=== PATIENT | female | born 1940 | race Caucasian/White ===

== ENCOUNTER 2020-01-23 05:45 | Observation (INO) | payer OTHER ==
[~2020-01-23] VITALS: Ht 167.6 cm; Wt 56.7 kg
[~2020-01-23 05:45] MED LIST: ASPIR 8181 MG PO; CO-ENZYME Q-1010 MG PO; LEVEMIR SUBLING; LEVEMIR SUBQ; MAGOX 400400 MG PO; MEDROL2 MG PO; METFORMIN HCL500 MG PO; MULTAQ 400 MG400 MG PO; NITROGLYCERIN0.4 MG SUBLING; OMEPRAZOLE40 MG PO; PREDNISONE 1 MG1 M1 PO; STARLIX60 MG; STARLIX60 MG PO; TOPROL XL25 MG PO; VITAMIN B-12500 MCG PO; XARELTO10 MG PO
[2020-01-23 06:50] LABS: ABSOLUTE NEUTROPHILS 4.3 thou/uL (1.4-8.2); BASOPHILS 0.6 % (0.0-2.0); EOSINOPHILS 2.4 % (0.0-3.0); HEMATOCRIT 34.8 % (37.0-47.0); HEMOGLOBIN 11.3 gm/dL (12.0-15.0); LYMPHOCYTES 31.9 % (24.0-44.0); MCHC 32.4 g/dL (28.0-37.0); MCV 86.2 fL (80.0-100.0); MONOCYTES 9.6 % (1.0-8.0); PLATELET COUNT 305 thou/uL (150-400); POLYS 55.5 % (36.0-66.0); RBC 4.04 mil/uL (4.20-5.00); RDW 13.1 % (10.5-14.5); WBC 7.7 thou/uL (4.0-11.0)
[2020-01-23 06:56] VITALS: BP 151/69
[2020-01-23 07:01] LABS: ANION GAP 10 mmol/L (7-16); BUN 16 mg/dL (7-18); CALCIUM 9.5 mg/dL (8.5-10.1); CHLORIDE 96 mmol/L (98-107); CO2 26 mmol/L (21-32); CREATININE 0.8 mg/dL (0.6-1.0); GLUCOSE 94 mg/dL (74-106); SODIUM 132 mmol/L (136-145)
[2020-01-23 07:11] LABS: ALBUMIN 3.9 g/dL (3.4-5.0); SGOT 30 U/L (15-37); SGPT 35 U/L (30-65); TOTAL BILIRUBIN 0.6 mg/dL (<0.1-1.0); TOTAL PROTEIN 7.6 g/dL (6.4-8.2); TROPONIN-I <0.06 ng/mL (<0.06)
[2020-01-23] MEDS ORDERED: LOSARTAN POTAS100 MG PO (07:49)
[2020-01-23] MEDS ORDERED: PROAIR HFA8.5 GM INH (07:50)
[2020-01-23] MEDS ORDERED: TRAMADOL 50 MG50 MG PO (07:51)
[2020-01-23] MEDS ORDERED: BENZONATATE200 MG PO (07:51)
[2020-01-23] MEDS ORDERED: COZAAR 25MG TAB25 MG PO (07:53)
[2020-01-23] MEDS ORDERED: TRESIBA FL100 UNIT/1 SUBQ (07:54)
[2020-01-23] MEDS ORDERED: ALLEGRA ALLERGY60 MG PO (07:55)
[2020-01-23] MEDS ORDERED: VITAMIN D325 MC3 PO (07:56)
[2020-01-23] MEDS ORDERED: GABAPENTIN 100100 MG PO (07:58)
[2020-01-23] MEDS ORDERED: LOSARTAN POTASS50 MG PO (07:58)
[2020-01-23] MEDS ORDERED: REFRESH OPTIVE15 ML EA. EYE (07:59)
[2020-01-23 08:42] VITALS: BP 155/74
--- NOTE | 2020-01-23 08:42 | EKG ---
[facility] [place] [address] ELECTROCARDIOGRAM REPORT Name: KULDIP REYNOSO Room #: REG [facility]#: [id number] Admission: 01/23/20 Attend Phys: Discharge: Date of : 44 Report #: [id number] THIS REPORT FOR: cc: Jcarlos Pennington MD, Bernard O. MD Couchonnal, Luis F. 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
--- NOTE | 2020-01-23 08:42 | EKG ---
[facility] [place] [address] ELECTROCARDIOGRAM REPORT Name: KULDIP RENYOSO Room #: REG [facility]#: [id number] Admission: 01/23/20 Attend Phys: Discharge: Date of : 44 Report #: [id number] THIS REPORT FOR: cc: Jcarlos Pennington MD, Bernard O. 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
[2020-01-23 09:38] LABS: CHOLESTEROL 176 mg/dL (<200); HDL CHOLESTEROL 31 mg/dL (>40); LDL CHOLESTEROL 104 mg/dL (<100); TC:HDL 5.7 Ratio (Not establshd); TRIGLYCERIDE 207 mg/dL (<150); VLDL 41 mg/dL (<40)
[2020-01-23 10:02] VITALS: BP 165/55
[2020-01-23 10:25] VITALS: BP 168/59
[2020-01-23 10:30] VITALS: BP 168/59
--- NOTE | 2020-01-23 11:07 | 2DMMODE ---
[facility] [place] [address] 2 D/M-MODE ECHOCARDIOGRAM Name: KULDIP REYNOSO Room #: 200-I [facility]#: [id number] Admission: 01/23/20 Attend Phys: Gonzales Wilson MD, Discharge: Date of : 44 Report #: [id number] THIS REPORT FOR: cc: Jcarlos Pennington MD, Bernard O. MD Park, Jin S. MD ~ APPROVED REPORT Study performed: 01/23/2020 10:21:19 EXAM: Comprehensive 2D, Doppler, and color-flow Echocardiogram Patient Location: Bedside Room #: 200 Status: routine BSA: 1.71 HR: 76 bpm BP: 165/55 mmHg Rhythm: NSR Other Information Study Quality: Good Indications Chest pain, short of breath, HTN. Hx: CAD, stent, Afib, HTN, HLP, DM, PVD. 2D Dimensions RVDd: 26.20 mm IVSd: 14.00 (7-11mm) LVOT Diam: 18.63 (18-24mm) LVDd: 40.87 mm PWd: 14.26 (7-11mm) Ascending Ao: 28.94 (22-36mm) LVDs: 28.53 (25-40mm) Aortic Root: 29.50 mm Volumes Left Atrial Volume (Systole) Single Plane 4CH: 43.66 mL Single Plane 2CH: 57.16 mL LA ESV Index: 32.00 mL/m2 Aortic Valve AoV Peak Killian.: 1.37 m/s AO Peak Gr.: 7.46 mmHg LVOT Max P.45 mmHg LVOT Max V: 0.93 m/s JEFFERY Vmax: 1.85 cm2 [facility] [address] [place] [address] 2 D/M-MODE ECHOCARDIOGRAM Name: KULDIP REYNOSO Room #: 200-I [facility].#: [id number] Admission: 01/23/20 Attend Phys: Gonzales Wilson, Discharge: Date of : 44 Report #: [id number] Mitral Valve E/A Ratio: 0.8 MV Decel. Time: 100.24 ms MV E Max Killian.: 0.59 m/s MV A Killian.: 0.75 m/s MV PHT: 29.07 ms IVRT: 121.11 ms Pulmonary Valve PV Peak Killian.: 0.93 m/s PV Peak Gr.: 3.46 mmHg Pulmonary Vein P Vein S: 0.54 m/s P Vein A: 0.29 m/s P Vein D: 0.35 m/s P Vein A Dur.: 117.6 msec P Vein S/D Ratio: 1.54 Tricuspid Valve RAP Estimate: 5.00 mmHg Left Ventricle The left ventricle is normal size. There is normal LV segmental wall motion. Moderate concentric left ventricular hypertrophy. Left ventricular systolic function is normal. LVEF is 60%. Mild diastolic dysfunction is present (impaired relaxation pattern). Right Ventricle The right ventricle is normal size. The right ventricular systolic function is normal. Atria Left atrium is at the upper limits of normal. The right atrium size is normal. Aortic Valve The aortic valve is normal in structure. No aortic regurgitation is present. There is no aortic valvular stenosis. Mitral Valve The mitral valve is normal in structure. Mild to moderate mitral regurgitation. No evidence of mitral valve stenosis. Tricuspid Valve The tricuspid valve is normal in structure. There is no tricuspid valve regurgitation noted. Unable to assess PA pressure. [facility] [address] [place] [address] 2 D/M-MODE ECHOCARDIOGRAM Name: KULDIP REYNOSO Room #: 200-I [facility] [place] .R.#: [id number] Admission: 01/23/20 Attend Phys: Gonzales Wilson, Discharge: Date of : 44 Report #: [id number] Pulmonic Valve The pulmonary valve is normal in structure. Trace pulmonic regurgitation. Great Vessels The aortic root is normal in size. The ascending aorta is normal in size. IVC is normal in size and collapses >50% with inspiration. Pericardium There is no pericardial effusion. <Conclusion> The left ventricle is normal size. Moderate concentric left ventricular hypertrophy. Left ventricular systolic function is normal. Mild diastolic dysfunction is present (impaired relaxation pattern). The right ventricle is normal size. Left atrium is at the upper limits of normal. The aortic valve is normal in structure. Mild to moderate mitral regurgitation. There is no tricuspid valve regurgitation noted. <ELECTRONICALLY SIGNED> By: Srinivas Jones MD 01/23/20 1106 05 05 Srinivas Jones MD /INF
[2020-01-23 15:42] VITALS: BP 168/59
--- NOTE | 2020-01-23 16:28 | NUR ---
ASSUMMED PT CARE AT APPROXIMATELY 1030. PT A&O X4. ASSESSMENT CHARTED. FALL PRECAUTIONS IN PLACE. PT DENIES HAVING CHEST PAIN. PT DENIES HAVING SOB. PT DENIES HAVING ACUTE PAIN. VITAL SIGNS STABLE. BLOOD SUGARS STABLE. PT DISCHARGING HOME C SELF CARE. PT RECIEVED DISHCARGE EDUCATION. PT STATED UNDERSTANDING AND DENIED HAVING FURTHER QUESTIONS. PT RECEIVING MEDICAL TRANSPORT OFF UNIT. PT AMBULATES STEADY/INDEPENDENT. PT COMFORTABLE. PT DENIES HAVING FURTHER CONCERNS. BELONGINGS C PT.
== END 2020-01-23 16:48 | disposition home or self-care (01) ==
LOC: ER 05:45 → EROBS 08:53 → 2N 10:13
PROVIDERS: Nurse Practitioner Adult Health; Student in an Organized Health Care Education/Training Program; ADMIT Internal Medicine Cardiovascular Disease
DX: R07.89 Other chest pain (principal); I25.10 Atherosclerotic heart disease of native coronary artery without angina pectoris; E78.5 Hyperlipidemia, unspecified; I10 Essential (primary) hypertension; E11.9 Type 2 diabetes mellitus without complications; I48.0 Paroxysmal atrial fibrillation; E78.00 Pure hypercholesterolemia, unspecified; K21.9 Gastro-esophageal reflux disease without esophagitis; D68.59 Other primary thrombophilia

== ENCOUNTER → 2020-04-02 | Outpatient (CLI) | payer OTHER ==
[~2020-04-02] MED LIST changes: +ALLEGRA ALLERGY60 MG PO; +BENZONATATE200 MG PO; +COZAAR 25MG TAB25 MG PO; +GABAPENTIN 100100 MG PO; +LOSARTAN POTAS100 MG PO; +LOSARTAN POTASS50 MG PO; +PROAIR HFA8.5 GM INH; +REFRESH OPTIVE15 ML EA. EYE; +TRAMADOL 50 MG50 MG PO; +TRESIBA FL100 UNIT/1 SUBQ; +VITAMIN D325 MC3 PO
== END ==
LOC: SJCVC 13:42
PROVIDERS: ATTEND Internal Medicine
DX: I44.4 Left anterior fascicular block (principal); I11.9 Hypertensive heart disease without heart failure; R94.31 Abnormal electrocardiogram [ECG] [EKG]; I25.10 Atherosclerotic heart disease of native coronary artery without angina pectoris; I10 Essential (primary) hypertension; E78.5 Hyperlipidemia, unspecified; I48.0 Paroxysmal atrial fibrillation; E08.00 Diabetes mellitus due to underlying condition with hyperosmolarity without nonketotic hyperglycemic-hyperosmolar coma (NKHHC); K21.9 Gastro-esophageal reflux disease without esophagitis; Z79.4 Long term (current) use of insulin; Z79.01 Long term (current) use of anticoagulants; Z82.49 Family history of ischemic heart disease and other diseases of the circulatory system; Z79.899 Other long term (current) drug therapy; Z79.84 Long term (current) use of oral hypoglycemic drugs

== ENCOUNTER → 2020-09-17 | Outpatient (CLI) | payer OTHER | LOC: SJCVC 14:00 | PROVIDERS: ATTEND Internal Medicine | DX: R94.31 Abnormal electrocardiogram [ECG] [EKG] (principal); I45.10 Unspecified right bundle-branch block; I44.4 Left anterior fascicular block; I11.9 Hypertensive heart disease without heart failure; I25.10 Atherosclerotic heart disease of native coronary artery without angina pectoris; I48.0 Paroxysmal atrial fibrillation; E78.5 Hyperlipidemia, unspecified; E11.9 Type 2 diabetes mellitus without complications; Z79.4 Long term (current) use of insulin; Z79.01 Long term (current) use of anticoagulants; Z79.899 Other long term (current) drug therapy ==

== ENCOUNTER → 2021-04-20 | Outpatient (CLI) | payer OTHER | LOC: SJCVC 11:09 | PROVIDERS: ATTEND Internal Medicine | DX: R94.31 Abnormal electrocardiogram [ECG] [EKG] (principal); I45.2 Bifascicular block; I11.9 Hypertensive heart disease without heart failure; I25.10 Atherosclerotic heart disease of native coronary artery without angina pectoris; I48.0 Paroxysmal atrial fibrillation; E78.5 Hyperlipidemia, unspecified; E08.00 Diabetes mellitus due to underlying condition with hyperosmolarity without nonketotic hyperglycemic-hyperosmolar coma (NKHHC); K21.9 Gastro-esophageal reflux disease without esophagitis; E78.00 Pure hypercholesterolemia, unspecified; I25.2 Old myocardial infarction; Z95.5 Presence of coronary angioplasty implant and graft; Z90.710 Acquired absence of both cervix and uterus; Z88.5 Allergy status to narcotic agent; Z88.8 Allergy status to other drugs, medicaments and biological substances; Z79.01 Long term (current) use of anticoagulants; Z79.4 Long term (current) use of insulin; Z79.899 Other long term (current) drug therapy; Z82.49 Family history of ischemic heart disease and other diseases of the circulatory system ==

== ENCOUNTER → 2021-09-05 | Outpatient (CLI) | payer OTHER | LOC: SJCVCIMAG 10:03 | PROVIDERS: ATTEND Internal Medicine | DX: I73.9 Peripheral vascular disease, unspecified (principal); E11.9 Type 2 diabetes mellitus without complications; I25.10 Atherosclerotic heart disease of native coronary artery without angina pectoris; I48.0 Paroxysmal atrial fibrillation; I10 Essential (primary) hypertension; E78.5 Hyperlipidemia, unspecified; R06.00 Dyspnea, unspecified; M79.604 Pain in right leg; M79.605 Pain in left leg; Z88.5 Allergy status to narcotic agent; Z91.013 Allergy to seafood; Z88.8 Allergy status to other drugs, medicaments and biological substances; Z79.84 Long term (current) use of oral hypoglycemic drugs; Z79.899 Other long term (current) drug therapy ==